=== PATIENT | male | born 1990 | race Caucasian/White ===

== ENCOUNTER 2023-06-03 15:24 | Inpatient (IN) | payer SELFPAY ==
[~2023-06-03] VITALS: Ht 167.6 cm; Wt 61.2 kg
[2023-06-03] MEDS ORDERED: MISCELLANEOUS MED IV ONE (15:45)
[2023-06-03 15:52] LABS: ABG BASE EXCESS 0.2 mmol/L (-2.0-2.0); ABG HCO3 25.3 mmol/L (22.0-26.0); ABG PCO2 42.4 mmHg (35.0-48.0); ABG PH 7.393 (7.340-7.440); ABG PO2 448.7 mmHg (75.0-100.0); ABG SITE RIGHT RADIAL; ABG TOTAL HEMOGLOBIN 17.2 G/dL (14.0-18.0); AaDO2 99.8 mmHg; COHb 0.1 % (0.0-3.9); MetHb 51.4 % (0.0-1.5); O2Hb 47.8 % (94.0-97.0)
[2023-06-03 15:58] LABS: BASOPHILS % (AUTO) 0.2 % (0.0-2.0); EOSINOPHILS % (AUTO) 0.1 % (0.0-7.0); HEMATOCRIT 44.1 % (36.7-47.1); HEMOGLOBIN 15.1 g/dL (12.5-16.3); LYMPHOCYTES # (AUTO) 1.8 K/uL (0.8-4.8); LYMPHOCYTES % (AUTO) 9.6 % (20.5-51.5); MEAN CORPUSCULAR HEMOGLOBIN 29.9 uug (23.8-33.4); MEAN CORPUSCULAR HGB CONC 34 g/dL (32.5-36.3); MEAN CORPUSCULAR VOLUME 87.1 fL (73.0-96.2); MONOCYTES # (AUTO) 1.2 K/uL (0.1-1.30); MONOCYTES % (AUTO) 6.2 % (0.0-11.0); NEUTROPHILS # (AUTO) 15.9 K/uL (1.8-8.9); NEUTROPHILS % (AUTO) 83.9 % (38.5-71.5); PLATELET COUNT (AUTO) 290 K/uL (152-348); RED BLOOD CELL COUNT(AUTO) 5.07 MIL/uL (4.06-5.63); RED CELL DISTRIBUTION WIDTH 12.4 % (12.1-16.2); WHITE BLOOD COUNT (AUTO) 18.9 K/uL (3.6-10.2)
[2023-06-03 16:22] LABS: DIFFERENTIAL COMMENT 1
[2023-06-03 16:31] LABS: ALANINE AMINOTRANSFERASE 61 U/L (16-63); ALBUMIN 4.2 g/dL (3.4-5.0); ALKALINE PHOSPHATASE 64 U/L (50-136); ASPARTATE AMINOTRANSFERASE 25 U/L (15-37); BILIRUBIN,DIRECT 0.1 mg/dL (0.0-0.2); BILIRUBIN,TOTAL 0.7 mg/dL (0.2-1.0); CALCIUM 8.9 mg/dL (8.5-10.1); CARBON DIOXIDE 28 mmol/L (21-32); CHLORIDE 103 mmol/L (98-107); GLUCOSE 107 mg/dL (74-106); POTASSIUM 4.1 mmol/L (3.5-5.1); SODIUM SERUM 139 mmol/L (136-145); TOTAL PROTEIN, SERUM 7.9 g/dL (6.4-8.2); UREA NITROGEN, BLOOD 14 mg/dL (7-18)
[2023-06-03 16:37] LABS: ETHANOL < 3 MG/DL (0-10)
[2023-06-03 16:38] LABS: ACETAMINOPHEN < 2.0 ug/mL (10-30)
[2023-06-03] MEDS: ONDANSETRON 4 MG/2 ML VIAL IV ONE (16:39)
[2023-06-03] MEDS: METHYLENE BLUE 50 MG/10 ML AMPUL (0.5%) IV ONE (17:00)
[2023-06-03] MEDS ORDERED: IV D5/ 0.9% NACL 1,000 ML IV PRN (18:15)
[2023-06-03] MEDS ORDERED: ONDANSETRON 4 MG/2 ML VIAL IV PRN ×2 (18:15)
[2023-06-03] MEDS ORDERED: MAGNESIUM HYDROXIDE 30 ML LIQUID UDC PO PRN (18:15)
[2023-06-03] MEDS ORDERED: ACETAMINOPHEN 325 MG TABLET PO PRN (18:15)
[2023-06-03 18:25] VITALS: O2SAT 98
[2023-06-03 18:28] LABS: ABG BASE EXCESS -0.9 mmol/L (-2.0-2.0); ABG HCO3 23.6 mmol/L (22.0-26.0); ABG PO2 175.8 mmHg (75.0-100.0); ABG TOTAL HEMOGLOBIN 14.7 G/dL (14.0-18.0); AaDO2 99.2 mmHg; COHb 0.4 % (0.0-3.9); MetHb 0.9 % (0.0-1.5)
== END 2023-06-03 19:04 | disposition left against medical advice (07) | DRG 917 ==
LOC: ER 15:26 → CCU 18:19
PROVIDERS: ADMIT Nurse Practitioner Acute Care; ATTEND Nurse Practitioner Acute Care
DX: T46.3X1A Poisoning by coronary vasodilators, accidental (unintentional), initial encounter (principal); J96.01 Acute respiratory failure with hypoxia; D74.9 Methemoglobinemia, unspecified; E87.29 Other acidosis; Y92.89 Other specified places as the place of occurrence of the external cause; F17.290 Nicotine dependence, other tobacco product, uncomplicated; D72.829 Elevated white blood cell count, unspecified; F11.11 Opioid abuse, in remission
CPT/HCPCS: 36600; 71045; 82803; 85025; 93005; A4606; A4663; G0378; G0480; J7040